=== PATIENT | male | born 1990 | race Asian ===

== ENCOUNTER 2017-01-27 18:58 | Emergency (ER) | payer SELFPAY ==
[~2017-01-27] VITALS: Ht 188 cm; Wt 93.0 kg
[2017-01-27 18:58] VITALS: BP 139/75; PULSE 105; RESP 14; TEMP 99; O2SAT 99
[2017-01-27 19:12] VITALS: BP 139/75; PULSE 105; RESP 14; TEMP 99; O2SAT 99
== END 2017-01-27 19:12 ==
LOC: SED 18:58
DX: S50.311A Abrasion of right elbow, initial encounter (principal); Y04.0XXA Assault by unarmed brawl or fight, initial encounter; Y93.89 Activity, other specified; Y99.8 Other external cause status; Y92.89 Other specified places as the place of occurrence of the external cause
CPT/HCPCS: 99283